=== PATIENT | male | born 1935 | race Caucasian/White ===

== ENCOUNTER 2016-12-25 11:58 | Inpatient (IN) ==
[~2016-12-25 11:58] MED LIST: Heparin 1,000 UNITS/500 mL NS 500 ML ONE
--- NOTE | 2016-12-25 12:20 | Anesthesia Evaluation PreOp ---
Date of Encounter: 12/25/16 Time of Encounter: 12:17 - Past History Planned Operation: Left CEA Cardiac History: [place] (2006), HTN, Hyperlipidemia, Arrhythmia (Afib?), Other ( [place]. Int. 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 D Def.) Anesthesia History: Past Anesthesia (Ankle sx, colonoscopy, Nasal genevieve) Alcohol Use: none Drug use: none Medications and Allergies Allergies No Known Allergies Allergy (Unverified 12/12/16 09:26) - Meds/Allergy Pre-op Review Medications Reviewed: Yes Allergies Reviewed: Yes Beta Blockers on Current Med List: Yes If Beta Blockers taken, Date/Time (Last Dose taken): 07:00 12/25/2016 Anesthesia Results - Labs Laboratory Tests 12/17/16 12/17/16 12/17/16 10:59 10:59 10:59 WBC 7.3 Hgb 16.2 Hct 48.5 Plt Count 251 INR 1.1 Sodium 143 Potassium 4.8 H Chloride 105 Carbon Dioxide 27 BUN 21 Creatinine 0.91 Stress 12/12/16 Afib Max Heart Rate 88 EF-68% No ischemia Anesthesia Exam O2 Sat Height 1.7 m Height 1.7 m Height 1.7 m Weight 73.028 kg Weight 73.028 kg Weight 73.028 kg O2 Sat by Pulse Oximetry 97 Vital Signs Temp Pulse Resp BP Pulse Ox 98.0 F 109 18 108/74 97 12/25/16 12:25 12/25/16 12:25 12/25/16 12:25 12/25/16 12:25 12/25/16 12:25 Weight: 73 kg NPO (# of Hours): > 8 Hrs Pain Scale: 0 Pain Scale Used: Numeric (1 - 10) - HEENT Pupil (Motor): Pupils equal, EOMI Mallampati: III Teeth: Missing, Poor dentition Denture Type: Upper: Partial Oral Opening: Greater than 3 - SHEET ROCK APPLICATOR LOC: Oriented SHEET ROCK APPLICATOR Motor: Normal RUE, Normal LUE, Normal RLE, Normal LLE, Normal Face SHEET ROCK APPLICATOR Sensory: Normal: RUE, LUE, RLE, LLE, Face - Cardiac Rhythm: Irregular Murmur: None JVD: No Carotid Bruit: No - Pulmonary Breath Sounds: bilateral Clear Respiratory Effort: Symmetrical Anesthesia Assess/Plan ASA Score: 3 Modified [place] Scale for Level of Consciousness: Cooperative, oriented, and tranquil Anesthetic Plan: General Autologous Blood: Yes Monitoring Plan: Standard Monitors, A-Line Recovery Plan: PACU
[2016-12-25] MEDS ORDERED: Vancomycin 1,000 MG in D5% in Water 250 ML IVPB ONE ×2 (12:21→13:15)
[2016-12-25] MEDS ORDERED: Albuterol 2.5 MG/3 ML NEBULIZER IH ONE (12:21)
[2016-12-25] MEDS ORDERED: CeFAZolin Pre 2,000 MG/100 ML 2,000 MG/100 ML BAG IVPB ONE (12:21)
[2016-12-25] MEDS ORDERED: Ringers Solution, Lactated 1,000 ML IVC SCH (12:30)
[2016-12-25] MEDS ORDERED: Levalbuterol Neb 1.25 MG/3 ML IH STA (12:43)
[2016-12-25] MEDS ORDERED: *HR* HYDROmorphone (PF) 1 MG/ML SYRINGE IVP PRN (12:46)
[2016-12-25] MEDS ORDERED: *HR* Labetalol 20 MG/4 ML SYRINGE IVP PRN ×2 (12:46→18:07)
--- NOTE | 2016-12-25 12:54 | History & Physical Report ---
Date of Encounter: 12/25/16 Time of Encounter: 12:50 24 Hour HP Update - Instructions Instructions: If the History and Physical is less than 30 days old and was completed prior to A.M. admission and or procedure and has NOT been updated on calendar day of procedure please complete this update prior to performing procedure. - Update Patient reports changes in Medical Condition: No Changes in examination, assessment, or condition: No Changes in Medication: No Preop tests/diagnostics Reviewed: Yes Surgery Remains Indicated: Yes Consent for Planned Operative Procedure(s) Verified: Yes - Pre-Operative Checklist Preoperative Checklist Indicated: Yes Prophylactic Antibiotic Ordered: Yes (Vancomycin due to MRSA risk) Home Medications Include Beta Arpan: Yes Beta Arpan Taken Today (Day of Surgery): Yes Beta Arpan Taken Yesterday (Day Prior to Surgery): Yes Is VTE Prophylaxis Indicated?: Yes
[2016-12-25] MEDS ORDERED: Protamine Sulfate 50 MG/5 ML VIAL IVP ONE (12:56)
[2016-12-25] MEDS ORDERED: Bupivacaine-MPF 0.25% 10 ML VIAL ONE (12:57)
[2016-12-25] MEDS ORDERED: Heparin 1,000 UNITS/500 mL NS 500 ML ONE (12:57)
[2016-12-25] MEDS ORDERED: *HR* FentaNYL (PF) 100 MCG/2 ML VIAL ONE ×4 (13:00→15:49)
[2016-12-25] MEDS ORDERED: EPHEDrine 50 MG/ML VIAL ONE (13:31)
[2016-12-25] MEDS ORDERED: *HR* Heparin 5,000 UNIT/ML VIAL ONE ×2 (13:34→15:18)
--- NOTE | 2016-12-25 16:55 | Operative Note ---
Date of procedure: 12/25/16 Pre-op diagnosis: 80-99% left internal carotid artery stenosis Post-op diagnosis: same Procedure: Left carotid endarterectomy with hemashield patch angioplasty. Complications: None Anesthesia: CLAUDIAA Surgeon: Segundo Moore Estimated blood loss (cc): 100 Specimen: Left carotid plaque Condition: stable Disposition: PACU Procedure in Detail: Indications: The patient is an 81 year old male who was found to have an 80-99 % left internal carotid artery stenosis on carotid duplex. A left carotid endarterectomy was recommended to reduce his risk of stroke. Procedure: The patient was identified in the preoperative area. The risks, benefits, and alternatives of the procedure were discussed and all questions were answered. The patient was then taken to the operating room and placed in supine position on the operating table. After induction of general endotracheal anesthesia, the patient was cleaned and draped in normal sterile fashion. A longitudinal incision was made anterior to his left sternocleidomastoid muscle. Hemostasis was obtained via electrocautery. Through a process of blunt , sharp, and electrocautery dissection, the platysma was traversed. The jugular vein was identified. The facial vein was clamped, divided, tied off with a 2-0 silk suture ligature. The jugular vein was retracted, exposing the carotid bifurcation. Patient received 2000 units of heparin intravenously at this time. Proximal dissection of the common and external carotid arteries were performed circumferentially. Dissection of the internal carotid was performed circumferentially. Vessels loops were passed around the internal and external carotid and an umbilical tape was passed from the common carotid artery. The patient received additional 3000 units of heparin intravenously. Additional heparin was given throughout the case to maintain adequate anticoagulation. After waiting adequate time for it to circulate, the vessels were occluded and a longitudinal arteriotomy was made into the common carotid artery extending into the internal carotid beyond the plaque. Vigorous pulsatile retrograde flow was noted from the internal carotid artery upon release of the loop. Due to sufficient retrograde internal carotid artery pressure, no shunt was placed. A dental [place] was used to perform a standard endarterectomy. The proximal and distal endpoints were inspected. No elevated flaps were noted. Additional heparin was given throughout the procedure to maintain adequate anticoagulation. A Hemashield patch was cut to fit the defect and sutured in place with running 6 -0 Prolene. Prior to completing the closure, each vessel was flushed and then reoccluded. Heparinized saline was infused into the lumen. The patch was completed. Flow was restored in the external carotid artery, followed the common carotid artery, lastly the internal carotid artery was opened. A low resistance arterialized signal was present within the internal carotid artery beyond the patch. Thrombin and Gelfoam were used to aid in hemostasis. Meticulous hemostasis was obtained throughout the wound with electrocautery. Platelet rich and platelet poor plasma were infused into the wounds. The sternocleidomastoid was reapproximated with interrupted 3-0 Vicryl. Platelet rich and platelet poor plasma were infused into the wound. A TLS drain was brought through a separate stab incision and sutured in place with 0 silk suture. The platysma was reapproximated with running 3-0 Vicryl. Local anesthetic was infused in the skin. A 3-0 Monocryl was used to reapproximate the skin. Sterile dressing was applied. The patient was extubated, taken to the recovery room in stable condition.
--- NOTE | 2016-12-25 17:33 | Anesthesia Evaluation Post Op ---
Date of Encounter: 12/25/16 Time of Encounter: 17:32 - Vital Signs Vital Signs: Vital Signs/O2 Sat, Most Current Temp Pulse Resp BP Pulse Ox 98.0 F 85 16 97/55 93 12/25/16 16:50 12/25/16 17:10 12/25/16 17:10 12/25/16 17:10 12/25/16 17:10 - Lungs Lungs: Clear Ascult./Percussion - Airway Airway: Non-obstructed - Cardiovascular Regular Rate - Mental Status Mental Status: Alert & Oriented, Answers Appropriately - Pain Pain Scale: 0 Pain Scale used: Numeric (1 - 10) - Nausea Vomiting Nausea Vomiting: Not Present - Hydration Hydration: Ice chips, Doe catheter - Discharge PostOp Status: Transfer Patient to floor
--- NOTE | 2016-12-25 17:57 | Event Note ---
Date of Encounter: 12/25/16 Time of Encounter: 17:55 Patient alert and comfortable. No hematoma. No acute issues. November D/C melara. Clear liquids tonight.
[2016-12-25] MEDS ORDERED: *HR* Morphine 2 MG/ML SYRINGE IVP PRN (18:07)
[2016-12-25] MEDS ORDERED: Acetaminophen 325 MG TABLET PO PRN (18:07)
[2016-12-25] MEDS ORDERED: Naloxone 0.4 MG/ML INJ IVP PRN (18:07)
[2016-12-25] MEDS ORDERED: Ondansetron 4 MG/2 ML VIAL IVP PRN (18:07)
[2016-12-25] MEDS ORDERED: *HR* HYDROcodone/Acet 5/325 mg TABLET PO PRN (18:07)
[2016-12-25] MEDS ORDERED: *HR* OxyCODONE Immed Rel 5 MG TABLET PO PRN (18:07)
[2016-12-25] MEDS: *HR* Metoprolol 5 MG/5 ML VIAL IVP SCH ×2 (19:00→23:56)
[2016-12-26] MEDS ORDERED: 0.9 % Sodium Chloride 1,000 ML IVC ONE (00:30)
[2016-12-26] MEDS ORDERED: 0.9 % Sodium Chloride 1,000 ML ONE (00:31)
[2016-12-26] MEDS ORDERED: Vancomycin 1,000 MG in D5% in Water 250 ML IVPB ONE ×2 (01:00→02:30)
[2016-12-26] MEDS: 0.9 % Sodium Chloride 1,000 ML IVC SCH ×2 (01:36→04:40)
[2016-12-26] MEDS: *HR* Metoprolol 5 MG/5 ML VIAL IVP SCH (05:35)
[2016-12-26] MEDS ORDERED: *HR* Heparin 5,000 UNIT/ML VIAL SQ SCH ×2 (06:00)
[2016-12-26 07:16] VITALS: BP 104/55
--- NOTE | 2016-12-26 07:33 | Discharge Summary ---
Outpatient Proc Discharge Plan - Plan Home Medications: Aspirin [Lo-Dose Aspirin EC] 81 mg PO DAILY 12/25/16 [History] Atorvastatin [Lipitor] 40 mg PO HS 12/25/16 [History] Cholecalciferol (D-3) [Vitamin D] 1,000 unit PO DAILY 12/25/16 [History] Clopidogrel [Plavix] 75 mg PO DAILY 12/25/16 [History] Fenofibric Acid (Choline) [Trilipix] 135 mg PO DAILY 12/25/16 [History] Metoprolol XL (24 HR) Succ [Toprol XL] 25 mg PO DAILY 12/25/16 [History]
--- NOTE | 2016-12-26 07:39 | Discharge Summary ---
Date of Encounter: 12/26/16 Time of Encounter: 07:40 - Discharge Diagnosis (1) Carotid stenosis, bilateral Priority: Primary Status: Chronic Comments: The patient is postoperative day number 1 after his left carotid endarterectomy. He is alert and comfortable. He has no neurologic deficits. His incision is healing without hematoma. He has expected ecchymosis around his incision. He will be discharged today. He will follow-up in clinic to schedule his right carotid endarterectomy. (2) Essential hypertension Priority: Secondary Status: Chronic Comments: The patient has been advised to hold his beta radha until he sees his primary physician due to his normotension and bradycardia. (3) Mixed hyperlipidemia Priority: Secondary Status: Chronic (4) CAD (coronary artery disease), [place] coronary artery Priority: Secondary Status: Chronic Qualifiers: [place] vs. transplanted heart: [place] heart Associated angina: without angina Qualified Code(s): I25.10 - Atherosclerotic heart disease of [place] coronary artery without angina pectoris (5) Tobacco abuse Priority: Secondary Status: Chronic Comments: He was counseled regarding smoking cessation. - Discharge Medications Prescriptions: HYDROcodone/Acet 5/325 mg [[place] 5-325 mg] 1 tab PO Q4H PRN #20 tablet PRN Reason: POSTOPERATIVE PAIN Home Medications: Aspirin [Lo-Dose Aspirin EC] 81 mg PO DAILY 12/25/16 [History] Atorvastatin [Lipitor] 40 mg PO HS 12/25/16 [History] Cholecalciferol (D-3) [Vitamin D] 1,000 unit PO DAILY 12/25/16 [History] Clopidogrel [Plavix] 75 mg PO DAILY 12/25/16 [History] Fenofibric Acid (Choline) [Trilipix] 135 mg PO DAILY 12/25/16 [History] HYDROcodone/Acet 5/325 mg [[place] 5-325 mg] 1 tab PO Q4H PRN #20 tablet 12/26/16 [Rx] Metoprolol XL (24 HR) Succ [Toprol Xl] 25 mg PO DAILY #0 12/26/16 [Rx] Allergies/Adverse Reactions: Allergies No Known Allergies Allergy (Verified 12/25/16 13:07) Procedures/tests Complete & Pending: Procedures Performed prior 72 hours Category Date Time Status EKG [ECG 12 lead ECG] [ECG] Stat Y 12/25/16 12:45 Completed Date of admission: 12/25/16 18:05 Primary care physician: Chang Hennessy DO Procedure(s) Performed: Left carotid endarterectomy Discharging clinician: Segundo Moore Anticipated date of discharge: 12/26/16 - Patient Status Disposition: Home, Self-Care Condition: Good Functional capacity at discharge: independent ambulation Overall status at discharge: patient is back to baseline - Discharge Instructions Instructions: Hydrocodone/Acetaminophen (By mouth), Carotid Endarterectomy (DC) , Peripheral Vascular Disorders (DC) Follow Up With: Chang Hennessy DO [Primary Care Provider] - 01/01/17 2:40 pm Segundo Moore MD [Partnered Physician] - 01/12/17 4:00 pm Additional Instructions: MAY REMOVE BANDAGE AND SHOWER ON 12/27/16. WASH WOUND GENTLY AND PAT TO DRY. NO TUB BATHS OR SWIMMING FOR [address] MOORE AT [phone] WITH QUESTIONS OR CONCERNS. If you have questions that are not answered by these instructions, please call your nurse or doctor. You have just had Carotid Endarterectomy surgery to remove harmful plaque from your carotid arteries. Risk Factors * If you smoke, STOP. Smoking or tobacco use significantly increases your risk of carotid artery disease because nicotine causes the arteries to narrow or constrict. It also causes fats to stick to th artery. Your chances of having a stroke are greatly increased if you continue to smoke. Fr more information call the patient education line for smoking cessation 7-862-MBLC-NOW. Lifting * Do not lift anything over 5 pounds or a half (1/2) gallon of milk. * Do not strain or flex your neck backwards. Bathing * If you still have a neck dressing keep it clean and dry. * It is okay to take a tub bath. Avoid soaking your incision. Activity * You may walk or clim stairs as tolerated Driving * Do not drive for one week or until your follow-up appointment. Diet as tolerated Site Care * If you have drake, leave incision open to air. * If you have steri-strips, let them fall off. Do not pull them off. * Clean with soap and water. Contact your doctor if: * Your neck feels swollen or you have trouble swallowing when you eat or drink. * Your incision becomes red or has yellow or green drainage (pus). * You develop a fever greater than 101 degrees. * If you have questions or concerns. Bleeding * Although the risks of bleeding is minimal, it can happen. If you have any bleeding, apply firm pressure over your incision site. If the bleeding does not stop call 911 and continue to hold pressure. DO NOT DRIVE YOURSELF to the hospital. * To prevent bleeding, apply pressure to the site for 2 days when coughing, sneezing or laughing. - Diet and Activity Activity: increase activity as tolerated Diet: low fat, low cholesterol - Hospital Course Hospital course: Mr. Collins is a 81 year old male with a history of carotid stenosis. He was admitted on 12/25/16 and underwent a left carotid endarterctomy. He tolerated the procedure well and was discharged on postoperative day #1 in stable condition without complication. - Time Spent with Patient Total time spent providing and/or coordinating discharge services: Exam Vital Signs, Last 4 Hours Temp Pulse Resp BP Pulse Ox 12/26/16 07:14 98.1 F 56 16 104/55 93 12/26/16 04:43 47 85/53 12/26/16 03:40 97.9 F 54 14 93/50 95 General: Present: Conversant, No Apparent Distress HEENT: Present: Trachea midline, Pupils equal Neck: Present: Other (Incision clean, dry and intact without erythema or drainage, no tongue deviation, symmetric, no hemtoma). Absent: JVD, Tracheal deviation Cardiac: Present: Reg Rate and Rhythm Lungs: Present: Normal Breath Sounds Neuro: Present: Alert and responsive, No focal deficits noted Abdomen: Present: Soft Vascular: Present: Normal capillary refill. Absent: Cyanosis, Edema Skin: Present: No rashes noted on visualized skin - VTE Documentation of Mechanical Device: Intermittent pneumatic compression device
[2016-12-26] MEDS ORDERED: Aspirin Enteric Coated 81 MG Tablet PO SCH (09:00)
[2016-12-26] MEDS ORDERED: Cholecalciferol (D-3) 1,000 UNIT TABLET PO SCH (09:00)
[2016-12-26] MEDS ORDERED: Metoprolol XL (24 HR) Succ 25 MG TAB.ER.24H PO SCH (09:00)
[2016-12-26] MEDS ORDERED: Fenofibrate 54 MG TABLET PO SCH (09:00)
[2016-12-26] MEDS ORDERED: ceFAZolin 2,000 MG in D5% in Water 100 ML IVPB SCH (20:00)
--- NOTE | 2016-12-27 12:26 | Electrocardiograph Report ---
[place] [id number] Test Date: 2016-12-25 Pat Name: Erick Collins Department: 106 Room: [facility] Gender: M Superintendent Track: JHON : 1935 Requested By: Yady Morris Order Number: [id number] Reading MD: Edgard Navarro Measurements Intervals [place] Rate: 0 P: AL: 0 QRS: 0 QRSD: 0 T: 0 QT: 0 QTc: 0 Interpretive Statements SINUS RHYTHM LEFT ATRIAL ENLARGEMENT ATYPICAL ECG Electronically Signed On 12-27-2016 12:25:27 EDT by Edgard Navarro
== END 2016-12-26 10:59 | disposition home or self-care (01) | DRG 39 ==
LOC: SAMDAY 11:58 → 2NNU 18:05
PROVIDERS: ADMIT Surgery; ATTEND Surgery

== ENCOUNTER 2017-01-15 10:54 | Inpatient (IN) ==
[~2017-01-15 10:54] MED LIST changes: +*HR* FentaNYL (PF) 100 MCG/2 ML VIAL ONE; +*HR* Midazolam HCl 2 MG/2 ML VIAL ONE; +*HR* Propofol 200 MG/20 ML VIAL IVP ONE; +*HR* Succinylcholine 200 MG/10 ML VIAL IVP ONE; +Dexamethasone 4 MG/ML VIAL ONE; -Heparin 1,000 UNITS/500 mL NS 500 ML ONE; +Lidocaine -MPF 2% 2 ML VIAL ONE; +Ondansetron 4 MG/2 ML VIAL ONE
--- NOTE | 2017-01-15 11:11 | Anesthesia Evaluation PreOp ---
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: Denies Any Significant HX Other Medical History: Other (vit D deficiency) Anesthesia History: Past Anesthesia (Left CEA, ankle surgery, colonoscopy, nasal polyps) Alcohol Use: none Drug use: none Medications and Allergies Aspirin [Lo-Dose Aspirin EC] 81 mg PO DAILY 12/25/16 [History] Atorvastatin [Lipitor] 40 mg PO HS 12/25/16 [History] Cholecalciferol (D-3) [Vitamin D] 1,000 unit PO DAILY 12/25/16 [History] Clopidogrel [Plavix] 75 mg PO DAILY 12/25/16 [History] Fenofibric Acid (Choline) [Trilipix] 135 mg PO DAILY 12/25/16 [History] HYDROcodone/Acet 5/325 mg [[place] 5-325 mg] 1 tab PO Q4H PRN #20 tablet 12/26/16 [Rx] Metoprolol XL (24 HR) Succ [Toprol Xl] 25 mg PO DAILY #0 12/26/16 [Rx] Allergies No Known Allergies Allergy (Verified 12/25/16 13:07) - Meds/Allergy Pre-op Review Medications Reviewed: Yes Allergies Reviewed: Yes Beta Blockers on Current Med List: No (primary care physician stopped BB) Anesthesia Results - Labs Laboratory Tests 12/17/16 12/17/16 12/17/16 10:59 10:59 10:59 WBC 7.3 Hgb 16.2 Hct 48.5 Plt Count 251 PT 11.8 INR 1.1 APTT 31.3 Sodium 143 Potassium 4.8 H Chloride 105 Carbon Dioxide 27 BUN 21 Creatinine 0.91 Est GFR ( Amer) > 60 Est GFR (Non-Af Amer) > 60 BUN/Creatinine Ratio 23 Glucose 83 Calculated Osmolality 298 Calcium 10.3 - Imaging EKG: report reviewed, image reviewed (SR; LAE) Additional studies: Nuclear Stress: A fib was present thoughout the exam; occ PVC's no sign ECG changes with regadenoson Gated LVEF 68% perfusion imaging negative for ischemia or infarct Anesthesia Exam Last Vital Signs Temp 98.3 F 01/15/17 11:12 Pulse 110 01/15/17 11:12 Resp 18 01/15/17 11:12 BP 179/88 01/15/17 11:12 Pulse Ox 98 01/15/17 11:12 Weight: 75 kg - HEENT Pupil (Motor): Pupils equal, EOMI Mallampati: III Teeth: Missing, Poor dentition Oral Opening: Greater than 3 - CALL OR CONTACT CENTRE MANAGER LOC: Oriented CALL OR CONTACT CENTRE MANAGER Motor: Normal RUE, Normal LUE, Normal RLE, Normal LLE, Normal Face - Cardiac Rhythm: Regular Murmur: None - Pulmonary Breath Sounds: bilateral Clear Respiratory Effort: Symmetrical Anesthesia Assess/Plan ASA Score: 3 Modified [place] Scale for Level of Consciousness: Cooperative, oriented, and tranquil Anesthetic Plan: General Monitoring Plan: Standard Monitors, A-Line Recovery Plan: PACU
[2017-01-15] MEDS ORDERED: Heparin 1,000 UNITS/500 mL NS 500 ML ONE ×2 (11:26→11:44)
--- NOTE | 2017-01-15 11:39 | History & Physical Report ---
Date of Encounter: 01/15/17 Time of Encounter: 11:25 24 Hour HP Update - Instructions Instructions: If the History and Physical is less than 30 days old and was completed prior to A.M. admission and or procedure and has NOT been updated on calendar day of procedure please complete this update prior to performing procedure. - Update Patient reports changes in Medical Condition: No Changes in examination, assessment, or condition: No Changes in Medication: No Preop tests/diagnostics Reviewed: Yes Surgery Remains Indicated: Yes Consent for Planned Operative Procedure(s) Verified: Yes - Pre-Operative Checklist Preoperative Checklist Indicated: Yes Prophylactic Antibiotic Ordered: Yes (vancomycin due to MRSA risk) Home Medications Include Beta Arpan: No Beta Arpan Taken Today (Day of Surgery): No Beta Arpan Taken Yesterday (Day Prior to Surgery): No Is VTE Prophylaxis Indicated?: Yes
[2017-01-15] MEDS ORDERED: Bupivacaine-MPF 0.25% 10 ML VIAL ONE (11:43)
[2017-01-15] MEDS ORDERED: Protamine Sulfate 50 MG/5 ML VIAL IVP ONE (11:43)
[2017-01-15] MEDS ORDERED: Lidocaine 1% 20 ML MDV ONE (11:44)
[2017-01-15] MEDS ORDERED: CeFAZolin Pre 2,000 MG/100 ML 2,000 MG/100 ML BAG IVPB ONE (11:57)
[2017-01-15] MEDS ORDERED: Albuterol 2.5 MG/3 ML NEBULIZER IH ONE (12:14)
[2017-01-15] MEDS: Ringers Solution, Lactated 1,000 ML IVC SCH ×3 (12:37→16:53)
[2017-01-15] MEDS ORDERED: *HR* Midazolam HCl 5 MG/5 ML VIAL IVP ONE (12:59)
[2017-01-15] MEDS ORDERED: EPHEDrine 50 MG/ML VIAL ONE (13:23)
[2017-01-15] MEDS ORDERED: *HR* Morphine 10 MG/ML VIAL ONE (16:17)
--- NOTE | 2017-01-15 17:16 | Operative Note ---
Date of procedure: 01/15/17 Pre-op diagnosis: 80-99% Right internal carotid artery stenosis Post-op diagnosis: same Procedure: Right carotid endarterectomy with hemashield patch angioplasty Complications: None Anesthesia: CLAUDIAA Surgeon: Segundo Moore Estimated blood loss (cc): 100 Specimen: Right carotid plaque Condition: stable Disposition: PACU Procedure in Detail: Indications: The patient is an 81 year old male who was found to have an 80-99 % right internal carotid artery stenosis. A right carotid endarterectomy was recommended to reduce his risk of cerebrovasulat accident Procedure: The patient was identified in the preoperative area. The risks, benefits, and alternatives of the procedure were discussed and all questions were answered. He was then taken to the operating room and placed in supine position on the operating table. After induction of general endotracheal anesthesia, he was prepped and draped in normal sterile fashion. A longitudinal incision was made anterior to the right sternocleidomastoid muscle. Hemostasis was obtained via electrocautery. Through a process of blunt , sharp, and electrocautery dissection, the platysma was traversed. The jugular vein was identified. The facial vein was clamped, divided, tied off with a 2-0 silk suture ligature. The jugular vein was retracted, exposing the carotid bifurcation. Patient received 3000 units of heparin intravenously at this time. Proximal dissection of the common and external carotid arteries were performed circumferentially. Dissection of the internal carotid was performed circumferentially. Vessels loops were passed around the internal and external carotid and an umbilical tape was passed from the common carotid artery. The patient received additional 2000 units of heparin intravenously. Additional heparin was given throughout the case to maintain adequate anticoagulation. After waiting adequate time for it to circulate, the vessels were occluded and a longitudinal arteriotomy was made into the common carotid artery extending into the internal carotid beyond the plaque. Vigorous pulsatile retrograde flow was noted from the internal carotid artery upon release of the loop; therefore, no shunt was placed. A dental [place] was used to perform a standard endarterectomy. Proximal and distal endpoints were inspected. No elevated flaps were noted. Additional heparin was given throughout the procedure to maintain adequate anticoagulation. A Hemashield patch was cut to fit the defect and sutured in place with running 6 -0 Prolene. Prior to completing the closure, each vessel was flushed and then reoccluded. Heparinized saline was infused into the lumen. The patch was completed. Flow was restored in the external carotid artery, followed the common carotid artery, lastly the internal carotid artery was opened. A low resistance arterialized signal was present within the internal carotid artery beyond the patch. Thrombin and Gelfoam were used to aid in hemostasis. Meticulous hemostasis was obtained throughout the wound with electrocautery. Platelet rich and platelet poor plasma were infused into the wounds. The sternocleidomastoid was reapproximated with interrupted 3-0 Vicryl. Platelet rich and platelet poor plasma were infused into the wound. A TLS drain was brought through a separate stab incision and sutured in place with 0 silk suture. The platysma was reapproximated with running 3-0 Vicryl. Local anesthetic was infused in the skin. A 3-0 Monocryl was used to reapproximate the skin. Sterile dressing was applied. The patient was extubated, taken to the recovery room in stable condition.
--- NOTE | 2017-01-15 17:17 | Anesthesia Evaluation Post Op ---
Date of Encounter: 01/15/17 Time of Encounter: 17:20 - Vital Signs Vital Signs: Vital Signs/O2 Sat/Glucose, Most Current Temp Pulse Resp BP Pulse Ox 01/15/17 17:08 79 16 98/51 95 01/15/17 16:58 99.3 F 78 16 95/54 95 01/15/17 16:48 82 18 95/53 92 01/15/17 16:38 84 18 106/56 93 01/15/17 16:28 99.8 F H 90 20 119/66 100 - Lungs Lungs: Clear Ascult./Percussion - Airway Airway: Non-obstructed - Cardiovascular Regular Rate - Mental Status Mental Status: Alert & Oriented, Answers Appropriately - Pain Pain Scale: 0 - Nausea Vomiting Nausea Vomiting: Not Present - Hydration Hydration: Ice chips - Discharge PostOp Status: Transfer Patient to floor
--- NOTE | 2017-01-15 17:18 | Event Note ---
Date of Encounter: 01/15/17 Time of Encounter: 17:00 The patient was seen in the recovery room. He is alert and comfortable without neurologic deficits. His TLS drain tube was changed. He has no hematoma and his face is symmetric. He will be transferred to [address] [place] [address]. Clear liquids overnight. Likely discharge tomorrow.
[2017-01-15] MEDS ORDERED: Ondansetron 4 MG/2 ML VIAL IVP PRN (18:01)
[2017-01-15] MEDS ORDERED: *HR* Morphine 2 MG/ML SYRINGE IVP PRN (18:01)
[2017-01-15] MEDS ORDERED: *HR* OxyCODONE Immed Rel 5 MG TABLET PO PRN (18:01)
[2017-01-15] MEDS ORDERED: Naloxone 0.4 MG/ML INJ IVP PRN (18:01)
[2017-01-15] MEDS ORDERED: Acetaminophen 325 MG TABLET PO PRN (18:01)
[2017-01-15] MEDS: *HR* Metoprolol 5 MG/5 ML VIAL IVP SCH (18:38)
[2017-01-15] MEDS: ceFAZolin 2,000 MG in D5% in Water 100 ML IVPB SCH (18:47)
[2017-01-15] MEDS: *HR* Heparin 5,000 UNIT/ML VIAL SQ SCH (18:48)
[2017-01-15] MEDS: *HR* HYDROcodone/Acet 5/325 mg TABLET PO PRN (21:07)
[2017-01-15] MEDS ORDERED: Vancomycin 1,250 MG in D5% in Water 250 ML IVPB ONE (23:00)
[2017-01-16] MEDS: *HR* Metoprolol 5 MG/5 ML VIAL IVP SCH ×2 (00:06→06:34)
[2017-01-16] MEDS: ceFAZolin 2,000 MG in D5% in Water 100 ML IVPB SCH (02:45)
[2017-01-16] MEDS: *HR* Heparin 5,000 UNIT/ML VIAL SQ SCH (06:36)
[2017-01-16 07:44] VITALS: BP 120/74
--- NOTE | 2017-01-16 08:03 | Discharge Summary ---
Date of Encounter: 01/16/17 Time of Encounter: 08:20 - Discharge Diagnosis (1) Carotid stenosis, bilateral Priority: Primary Status: Chronic Comments: The patient is postoperative day #1 after right carotid endarterectomy. He has no neurologic deficits. His wound is healing well. He has no hematoma. He will be discharged today. (2) Essential hypertension Priority: Secondary Status: Chronic (3) CAD (coronary artery disease), [place] coronary artery Priority: Secondary Status: Chronic Qualifiers: [place] vs. transplanted heart: [place] heart Associated angina: without angina Qualified Code(s): I25.10 - Atherosclerotic heart disease of [place] coronary artery without angina pectoris (4) Mixed hyperlipidemia Priority: Secondary Status: Chronic Comments: He was counseled regarding atheorsclerotic risk factor reduction. (5) Tobacco abuse Priority: Secondary Status: Chronic - Discharge Medications Prescriptions: OxyCODONE/APAP 5/325 [Percocet 5/325 MG] 1 each PO Q4HR PRN #20 tablet PRN Reason: POSTEROPERATIVE PAIN Home Medications: Aspirin [Lo-Dose Aspirin EC] 81 mg PO DAILY 12/25/16 [History] Atorvastatin [Lipitor] 40 mg PO HS 12/25/16 [History] Cholecalciferol (D-3) [Vitamin D] 1,000 unit PO DAILY 12/25/16 [History] Clopidogrel [Plavix] 75 mg PO DAILY 12/25/16 [History] Fenofibric Acid (Choline) [Trilipix] 135 mg PO DAILY 12/25/16 [History] Metoprolol XL (24 HR) Succ [Toprol Xl] 25 mg PO DAILY #0 12/26/16 [Rx] OxyCODONE/APAP 5/325 [Percocet 5/325 MG] 1 each PO Q4HR PRN #20 tablet 01/16/17 [Rx] Allergies/Adverse Reactions: Allergies No Known Allergies Allergy (Verified 01/15/17 12:58) Date of admission: 01/15/17 17:36 Primary care physician: Chang Hennessy DO Procedure(s) Performed: Right carotid endarterectomy Discharging clinician: Segundo Moore Anticipated date of discharge: 01/16/17 - Patient Status Disposition: Home, Self-Care Condition: Good Functional capacity at discharge: independent ambulation Overall status at discharge: patient is back to baseline - Discharge Instructions Instructions: Oxycodone/Acetaminophen (By mouth), Peripheral Vascular Disorders (DC) Follow Up With: Chang Hennessy DO [Primary Care Provider] - 01/22/17 12:40 pm (PLEASE TAKE ID, AND COPAY WITH YOU TO YOUR APPOINTMENT) Segundo Moore MD [Partnered Physician] - 03/03/17 1:00 pm Additional Instructions: May remove bandage and shower on 01/17/17. Wash wound gently and pat to dry. No driving for [address] Moore at [phone] with questions or concerns. - Diet and Activity Activity: increase activity as tolerated Diet: advance to your usual diet - Hospital Course Hospital course: Mr. Collins is a 81 year old male admitted on 01/15/17. He underwent a carotid endarterectomy and tolerated the procedure well. He was discharged to home in stable condition on postoperative day #1 without complication. Time spent discussing smoking cessation with patient: 3 to 10 minutes - Time Spent with Patient Total time spent providing and/or coordinating discharge services: Exam Vital Signs, Last 4 Hours Temp Pulse Resp BP Pulse Ox 01/16/17 07:42 98.5 F 86 18 120/74 97 01/16/17 04:55 62 01/16/17 04:24 97.8 F 71 14 107/50 99 General: Present: Conversant, No Apparent Distress HEENT: Present: Atraumatic, Pupils equal Neck: Absent: Tracheal deviation Cardiac: Present: Reg Rate and Rhythm Lungs: Present: Normal Breath Sounds, No Wheeze, Rales, Rhonchi Neuro: Present: Alert and responsive, No focal deficits noted, Cranial nerves grossly intact, Motor nerves grossly intact, Sensory nerves grossly intact Abdomen: Present: Soft Vascular: Present: Normal capillary refill, Pulse, normal, Surgical incisions ( incision clean, dry and intact without erythema or drainage, no hematoma.). Absent: Cyanosis, Edema - VTE Documentation of Mechanical Device: Intermittent pneumatic compression device
[2017-01-16] MEDS: *HR* HYDROcodone/Acet 5/325 mg TABLET PO PRN (08:51)
[2017-01-16] MEDS ORDERED: Aspirin Enteric Coated 81 MG Tablet PO SCH (09:00)
[2017-01-16] MEDS ORDERED: Cholecalciferol (D-3) 1,000 UNIT TABLET PO SCH (09:00)
[2017-01-16] MEDS ORDERED: Fenofibrate 54 MG TABLET PO SCH (09:00)
[2017-01-16] MEDS ORDERED: *HR* Heparin 5,000 UNIT/ML VIAL SQ SCH ×2 (18:00)
== END 2017-01-16 11:07 | disposition home or self-care (01) | DRG 39 ==
LOC: SAMDAY 10:54 → 2NNU 17:36
PROVIDERS: ADMIT Surgery; ATTEND Surgery